=== PATIENT | male | born 1950 | race Caucasian/White ===

== ENCOUNTER 2018-06-25 11:39 | Day surgery (SDC) | payer MEDICARE, MEDICAID ==
[~2018-06-25 11:39] MED LIST: Naloxone* 0.4 MG/ML 1 ML VIAL IV PRN
[2018-06-25] MEDS ORDERED: Propofol* 10 MG/ML 20 ML BTL ONE (12:41)
[2018-06-25] MEDS ORDERED: Lidocaine 2% PF * 5 ML VIAL ONE (12:41)
[2018-06-25] MEDS ORDERED: Midazolam* 1 MG/ML 2 ML VIAL (2 MG) ONE (12:42)
[2018-06-25] MEDS ORDERED: fentaNYL* 50 MCG/ML 2 ML VIAL (100 MCG VIAL) ONE (12:42)
[2018-06-25] MEDS ORDERED: Propofol* 100 ML ONE (12:45)
[2018-06-25] MEDS ORDERED: KETAMINE HCL* 50 MG/ML 10 ML VIAL ONE (12:46)
[2018-06-25] MEDS ORDERED: Glycopyrrolate IV* 0.2 MG/ML 1 ML VIAL ONE ×2 (13:00→13:52)
[2018-06-25] MEDS ORDERED: Acetaminophen TAB* 325 MG PO PRN (14:19)
[2018-06-25] MEDS ORDERED: oxyCODONE TAB* 5 MG TAB PO PRN (14:19)
[2018-06-25] MEDS ORDERED: Naloxone* 0.4 MG/ML 1 ML VIAL IV PRN (14:19)
[2018-06-25] MEDS ORDERED: Ketorolac INJ* 30 MG/ML 1 ML VIAL IV PRN (14:19)
[2018-06-25] MEDS ORDERED: Ondansetron ODT TAB* 4 MG PO PRN (14:19)
[2018-06-25 15:41] VITALS: BP 167/96
--- NOTE | 2018-06-25 20:53 | PRO ---
CC: Dr. Usama Bal * COLONOSCOPY REPORT: DATE OF PROCEDURE: 06/25/18 - [facility] PRIMARY CARE PHYSICIAN: Dr. Usama Bal. INDICATION FOR PROCEDURE: Positive Cologuard testing. PROCEDURE PERFORMED: Complete colonoscopy to the terminal ileum with cold snare polypectomy x2, Spot ink tattooing, and biopsy polypectomy x9. MEDICATIONS GIVEN: Please see anesthesia record. DESCRIPTION OF PROCEDURE: After the colonoscopy procedure including the risks, benefits, and alternatives with the risks not limited to perforation, surgery, missed lesions, and/or were explained to the patient, written informed consent was obtained, IV medication was given, and a rectal exam was performed. The rectal exam was unremarkable. The adult Olympus colonoscope was inserted into the patient's rectum and advanced very carefully through the entirety of the colon into the cecal base. The preparation was good. In the cecum, a polyp was removed with biopsy polypectomy. The terminal ileum was identified and intubated x3 to 4 cm and normal in appearance. The scope was then returned to the cecum. Over the next 40 plus minutes, the scope was carefully withdrawn inspecting the mucosa. In ascending colon, 2 polyps were removed with hot snare polypectomy, the largest being about a centimeter. In the ascending colon , at 90 cm, a large flat polyp was identified on a fold. Multiple attempts with the hex snare and other snaring devices, however, was not able to facilitate endoscopic removal and it did seem slightly pitted in the middle. The decision was made not to lift and resect and to send for EMR at tertiary care. I did take biopsies of this. The area was tattooed with Spot ink. The scope was continued to be removed. In the transverse colon, biopsy polypectomy of 6 additional polyps was done. In the transverse, at 50 cm, a 1 cm polyp was removed with cold snare polypectomy. In the sigmoid colon, an additional polyp was removed with biopsy polypectomy. I returned to the rectum, the direct views were normal. On retroflexion, he had grade 1 internal hemorrhoids. Of note, colon had a redundant and dilated appearance to it. The scope was then removed from the patient. He tolerated the procedure well. He returned to the recovery room in stable condition. IMPRESSION: 1. Complete colonoscopy to the terminal ileum. 2. Good prep. 3. Biopsy polypectomy of 9 polyps as above. 4. Cold snare polypectomy of 2 polyps as above. 5. Large flat polyp at 90 cm, unable to be removed endoscopically here. I tattooed the area and biopsied it. 6. Difficult colonoscopy with the procedure time over 45 minutes and over 10 polyps removed. RECOMMENDATIONS: Await results of biopsies and pathology. We will tentatively plan on sending the patient for EMR of the lesion at 90 cm for advanced endoscopic removal at tertiary care. [id number]/[facility] #: [id number] [place]
== END 2018-06-25 15:57 | disposition home or self-care (01) ==
LOC: ENDO 11:39
PROVIDERS: ATTEND Internal Medicine Gastroenterology
DX: R19.5 Other fecal abnormalities (principal); D12.2 Benign neoplasm of ascending colon; D12.3 Benign neoplasm of transverse colon; K63.5 Polyp of colon; K63.89 Other specified diseases of intestine; E11.9 Type 2 diabetes mellitus without complications; I10 Essential (primary) hypertension; Z88.7 Allergy status to serum and vaccine; Z79.84 Long term (current) use of oral hypoglycemic drugs; Z79.899 Other long term (current) drug therapy
CPT/HCPCS: 88305; 93005; J2250; J2704; J3010

== ENCOUNTER 2019-01-23 13:37 | Emergency (ER) | payer MEDICAID, MEDICARE, OTHER ==
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
[2019-01-23 16:22] VITALS: BP 163/87
== END 2019-01-23 16:20 | disposition home or self-care (01) ==
LOC: ED 13:37
DX: S16.1XXA Strain of muscle, fascia and tendon at neck level, initial encounter (principal); S39.012A Strain of muscle, fascia and tendon of lower back, initial encounter; V49.40XA Driver injured in collision with unspecified motor vehicles in traffic accident, initial encounter; Y92.410 Unspecified street and highway as the place of occurrence of the external cause; E11.9 Type 2 diabetes mellitus without complications; I10 Essential (primary) hypertension; M19.90 Unspecified osteoarthritis, unspecified site; F41.9 Anxiety disorder, unspecified; F32.9 Major depressive disorder, single episode, unspecified; F17.210 Nicotine dependence, cigarettes, uncomplicated; Z79.82 Long term (current) use of aspirin; Z79.84 Long term (current) use of oral hypoglycemic drugs; Z79.899 Other long term (current) drug therapy; Z88.7 Allergy status to serum and vaccine
CPT/HCPCS: 70450; 72125; 72131; 99282

== ENCOUNTER 2019-04-04 12:51 | Inpatient (IN) | payer MEDICARE, MEDICAID ==
[2019-04-04] MEDS ORDERED: Buprenorp/Nalox 8-2 MG FILM SL FILM ONE (13:35)
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
[2019-04-04] MEDS ORDERED: HYDROmorphone INJ1* 1 MG/ML SYRINGE IM ONE (13:50)
[2019-04-04] MEDS ORDERED: HYDROmorphone INJ1* 1 MG/ML SYRINGE IV SLOW PU ONE ×4 (14:35→19:18)
[2019-04-04 20:58] LABS: ABS Lymphocytes 0.9 10^3/ul (1.0-4.8); ABS Monocytes 0.4 10^3/ul (0-0.8); ABS Neutrophils 11.3 10^3/ul (1.5-7.7); Eosinophil % 0.1 %; Hematocrit 40 % (42-52); Hemoglobin 14.3 g/dL (14.0-18.0); Lymphocyte % 6.9 %; Mean Corpuscular HGB Conc 36 g/dL (31-36); Mean Corpuscular Hemoglobin 31 pg (27-31); Mean Corpuscular Volume 88 fL (80-94); Mean Platelet Volume 8.3 fL (7.4-10.4); Platelet Count 177 10^3/uL (150-450); Red Blood Count 4.55 10^6 /uL (4.18-5.48); Red Cell Distribution Width 13 % (10-15); White Blood Count 12.6 10^3/uL (3.5-10.8)
[2019-04-04 21:15] LABS: Albumin 4.4 g/dL (3.2-5.2); Albumin/Globulin Ratio 1.5 (1-3); BUN/Creatinine Ratio 35.9 (8-20); Calcium 9.5 mg/dL (8.6-10.3); EGFR African American 119.1 (>60); EGFR Non-African American 98.4 (>60); Globulin 2.9 g/dL (2-4); Potassium 3.8 mmol/L (3.5-5.0); Total Bilirubin 0.5 mg/dL (0.2-1.0); Total Protein 7.3 g/dL (6.4-8.9)
--- NOTE | 2019-04-04 21:58 | ED ---
Progress - Progress Note Progress Note: This pt is a sign out to Dr. Dorman by Dr. Wan pending hospitalist evaluation for admission Re-Evaluation - Re-Evaluation First Eval Re-Evaluation Time: 00:38 Comment: Upon re-evaluation, the pt stated that he was very depressed and expressed a desire to see a social psychologist for added help. He states that he has no running water, heat, or food at his house. Pt will be evaluated for a social admittance to [facility]. Course/Dx - Course Course Of Treatment: This pt is a sign out to Dr. Dorman by Dr. Wan pending hospitalist consult. hospitalist was uncomfortable giving pain meds and admitting patient. patient given multiple doses of dilaudid in the emergency room. then fentanyl which helped more with pain. patient given fentanyl patch at home dose. multiple social issues then became apparent. patient admitted to depression, lack of heat, food, money. wants to move where there are more people and social setting. patient referred back to hospitalist for admission as he is not a safe discharge at this time. Xanax, Heparin, Lidocaine, Sodium Chloride, fentanyl patch - Diagnoses Provider Diagnoses: Opioid withdrawal, Social problem - Provider Notifications Discussed Care Of Patient With: Mara Kemp Time Discussed With Above Provider: 00:59 Instructed by Provider To: Admit As Inpatient Admit/Transition Orders Completed By ED Provider: Yes Discharge ED - Sign-Out/Discharge Documenting (check all that apply): Patient Departure - admitted - Discharge Plan Condition: Stable Disposition: ADMITTED TO [facility] Referrals: Usama Bal MD [Primary Care Provider] - - Billing Disposition and Condition Condition: STABLE Disposition: Admitted to [facility] - Attestation Statements Document Initiated by Mauricioibe: Yes Documenting Scribe: Nathan Roach Provider For Whom Pa is Documenting (Include Credential): Yolette Dorman MD Scribe Attestation: Nathan Mahmood scribed for Yolette Dorman MD on 04/05/19 at 0138. Scribe Documentation Reviewed: Yes Provider Attestation: The documentation as recorded by the Nathan fernandez accurately reflects the service I personally performed and the decisions made by me, Yolette Dorman MD Status of Scribe Document: Viewed Procedures - Sedation Patient Received Moderate/Deep Sedation with Procedure: No
[2019-04-04] MEDS ORDERED: Lidocaine PATCH 5%* 1 PATCH TRANSDERM ONE (22:18)
[2019-04-04] MEDS ORDERED: fentaNYL* 50 MCG/ML 2 ML VIAL (100 MCG VIAL) IV SLOW PU ONE (22:52)
[2019-04-05] MEDS: Acetaminophen TAB* 325 MG PO PRN ×2 (01:21→08:54)
[2019-04-05] MEDS: ALPRAZolam TAB* 0.5 MG PO PRN ×3 (01:22→21:03)
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
[2019-04-05] MEDS: NS 0.9% 1000 ML** 1,000 ML IV SCH ×2 (05:32→20:59)
[2019-04-05] MEDS ORDERED: Ondansetron INJ* 2 MG/ML VIAL IV PRN (05:40)
[2019-04-05] MEDS: Pantoprazole TAB * 40 MG TAB PO SCH (06:14)
[2019-04-05] MEDS: Heparin VIAL(*) 5000 UNITS/ML VIAL (FIVE THOUSAND) SUBCUT SCH ×3 (06:15→21:06)
[2019-04-05] MEDS: Aspirin EC TAB* 81 MG TAB.EC PO SCH (08:48)
[2019-04-05] MEDS: metFORMIN* 500 MG TAB PO SCH ×2 (08:49→21:02)
[2019-04-05] MEDS: Gemfibrozil TAB* 600 MG PO SCH ×2 (08:49→21:02)
[2019-04-05] MEDS ORDERED: fentaNYL PATCH 75 MCG/HR* 75 MCG TRANSDERM SCH (11:00)
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
[2019-04-05] MEDS: fentaNYL Patch Check Q Shift 1 NOTE FOLLOW UP SCH (18:50)
[2019-04-05] MEDS ORDERED: Lidocaine Patch REMOVE* 1 NOTE MISC SCH (21:00)
[2019-04-05] MEDS: Naproxen TAB* 375 MG PO SCH (21:02)
[2019-04-05] MEDS: Gabapentin CAP(*) 100 MG PO SCH (21:03)
[2019-04-06] MEDS: Heparin VIAL(*) 5000 UNITS/ML VIAL (FIVE THOUSAND) SUBCUT SCH ×3 (05:54→22:15)
[2019-04-06] MEDS: fentaNYL Patch Check Q Shift 1 NOTE FOLLOW UP SCH ×2 (06:44→18:41)
[2019-04-06] MEDS: Naproxen TAB* 375 MG PO SCH ×2 (09:15→22:12)
[2019-04-06] MEDS: Gemfibrozil TAB* 600 MG PO SCH ×2 (09:16→22:12)
[2019-04-06] MEDS: Aspirin EC TAB* 81 MG TAB.EC PO SCH (09:16)
[2019-04-06] MEDS: Pantoprazole TAB * 40 MG TAB PO SCH (09:16)
[2019-04-06] MEDS: Gabapentin CAP(*) 100 MG PO SCH ×2 (09:16→22:12)
[2019-04-06] MEDS: metFORMIN* 500 MG TAB PO SCH ×2 (09:17→22:11)
[2019-04-06] MEDS: Lidocaine 4% GEL* 10 GM TUBE TOPICAL SCH ×2 (11:51→22:15)
[2019-04-06] MEDS: oxyCODONE TAB* 5 MG TAB PO PRN ×2 (13:53→22:11)
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
[2019-04-07] MEDS: Heparin VIAL(*) 5000 UNITS/ML VIAL (FIVE THOUSAND) SUBCUT SCH ×2 (05:21→14:29)
[2019-04-07] MEDS: fentaNYL Patch Check Q Shift 1 NOTE FOLLOW UP SCH (06:58)
[2019-04-07] MEDS: Aspirin EC TAB* 81 MG TAB.EC PO SCH (08:55)
[2019-04-07] MEDS: Gabapentin CAP(*) 100 MG PO SCH (08:55)
[2019-04-07] MEDS: Pantoprazole TAB * 40 MG TAB PO SCH (08:55)
[2019-04-07] MEDS: metFORMIN* 500 MG TAB PO SCH (08:56)
[2019-04-07] MEDS: Naproxen TAB* 375 MG PO SCH (08:57)
[2019-04-07] MEDS: Gemfibrozil TAB* 600 MG PO SCH (08:57)
[2019-04-07] MEDS: Lidocaine 4% GEL* 10 GM TUBE TOPICAL SCH (08:58)
[2019-04-07] MEDS: oxyCODONE TAB* 5 MG TAB PO PRN (08:58)
[2019-04-07 15:47] VITALS: BP 111/99
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
== END 2019-04-07 16:45 | disposition home health service (06) | DRG 554 ==
LOC: ED 12:51 → MED 04-05 00:55 → OBSVTOIN 04-06 16:00
PROVIDERS: ADMIT Student in an Organized Health Care Education/Training Program; ATTEND Internal Medicine
DX: M17.0 Bilateral primary osteoarthritis of knee (principal); F11.23 Opioid dependence with withdrawal; F32.9 Major depressive disorder, single episode, unspecified; Z60.9 Problem related to social environment, unspecified; G89.29 Other chronic pain; I10 Essential (primary) hypertension; E11.40 Type 2 diabetes mellitus with diabetic neuropathy, unspecified; F41.9 Anxiety disorder, unspecified; F90.9 Attention-deficit hyperactivity disorder, unspecified type; F17.210 Nicotine dependence, cigarettes, uncomplicated; E78.5 Hyperlipidemia, unspecified; Z79.82 Long term (current) use of aspirin; Z88.7 Allergy status to serum and vaccine; Z79.84 Long term (current) use of oral hypoglycemic drugs; Z79.899 Other long term (current) drug therapy
CPT/HCPCS: 36415; 80053; 83036; 84484; 85025; 96372; 96374; 96375; 99284; A9270-GY; G0378; G8978-GP-CJ; G8979-GP-CI; J1170; J1644; J2405; J3010